=== PATIENT | male | born 1990 | race Hispanic/Latino ===

== ENCOUNTER 2017-08-31 10:34 | Emergency (ER) | payer OTHER ==
[~2017-08-31] VITALS: Ht 162.6 cm; Wt 56.0 kg
[2017-08-31] MEDS ORDERED: MOTRIN400 MG PO (12:59)
[2017-08-31 13:06] VITALS: BP 120/78
== END 2017-08-31 13:40 | disposition home or self-care (01) | DRG 556 ==
LOC: ED 10:34
PROC: 2W3LX1Z Immobilization of Right Lower Extremity using Splint (ICD-10-PCS; principal; 2017-08-31)
DX: M79.671 Pain in right foot (principal); X50.0XXA Overexertion from strenuous movement or load, initial encounter; Y93.89 Activity, other specified; Y92.89 Other specified places as the place of occurrence of the external cause